=== PATIENT | male | born 1985 | race Asian ===

== ENCOUNTER → 2024-03-13 | Outpatient (CLI) | payer BC ==
[2024-03-13 14:04] LABS: CLARITY URINE CLEAR (CLEAR); COLOR URINE YELLOW (YELLOW); GLUCOSE URINE NEGATIVE (NEGATIVE); PROTEIN URINE NEGATIVE (NEGATIVE); SPECIFIC GRAVITY URINE 1.023 (1.005-1.030)
[2024-03-13 14:05] LABS: KETONES URINE NEGATIVE (NEGATIVE); LEUKOCYTE ESTERASE URINE NEGATIVE (NEGATIVE); NITRITE URINE NEGATIVE (NEGATIVE); OCCULT BLOOD URINE NEGATIVE (NEGATIVE); UROBILINOGEN URINE 0.2 E.U./dL (0.2-1.0)
[2024-03-13 14:22] LABS: ALANINE AMINOTRANSFERASE 56 IU/L (10-49); ALBUMIN 4.5 g/dL (3.2-4.8); ASPARTATE AMINOTRANSFERASE 37 IU/L (<34); BILIRUBIN TOTAL 1.8 mg/dL (0.1-1.0); CALCIUM 9.1 mg/dL (8.7-10.4); CARBON DIOXIDE 28 mEq/L (21-32); CHLORIDE 106 mEq/L (98-107); CHOLESTEROL 237 mg/dL (<200); GLUCOSE 86 mg/dL (70-105); HDL CHOLESTEROL 36 mg/dL (>55); LDL CHOLESTEROL 184 mg/dL (5-100); POTASSIUM 3.9 mEq/L (3.5-5.1); PROTEIN TOTAL 7.4 g/dL (6.0-8.3); SODIUM 141 mEq/L (136-145); T4 FREE 1.36 ng/dL (0.89-1.76); THYROID STIMULATING HORMONE 1.41 uIU/mL (0.55-4.78); TRIGLYCERIDE 172 mg/dL (0-150); UREA NITROGEN BLOOD 8 mg/dL (9-23)
[2024-03-16 09:07] LABS: PROSTATE SPECIFIC AG TOTAL 0.9 ng/mL (0.0-4.0)
[2024-03-16 13:06] LABS: VITAMIN D 25-OH 14.7 ng/mL (30.0-100.0)
[2024-03-17 04:12] LABS: CARCINOEMBRYONIC AG - SEND OUT 3.4 ng/mL (0.0-4.7)
== END | disposition home or self-care (01) ==
LOC: US 13:17
PROVIDERS: ATTEND Internal Medicine Endocrinology, Diabetes & Metabolism
DX: Z13.9 Encounter for screening, unspecified (principal); N20.0 Calculus of kidney; K80.20 Calculus of gallbladder without cholecystitis without obstruction; K76.0 Fatty (change of) liver, not elsewhere classified; E78.00 Pure hypercholesterolemia, unspecified; R73.9 Hyperglycemia, unspecified; K52.9 Noninfective gastroenteritis and colitis, unspecified
CPT/HCPCS: 36415; 76700; 80053; 80061; 81003; 82306; 82378; 82941; 83036; 84153; 84439; 84443; 86301

== ENCOUNTER → 2024-05-01 | Outpatient (CLI) | payer BC ==
[2024-05-02 16:32] LABS: ALANINE AMINOTRANSFERASE 59 IU/L (10-49); ALBUMIN 4.5 g/dL (3.2-4.8); ASPARTATE AMINOTRANSFERASE 32 IU/L (<34); BILIRUBIN DIRECT 0.2 mg/dL (<=3.0); BILIRUBIN TOTAL 0.8 mg/dL (0.1-1.0); GAMMA GLUTAMYL TRANSPEPTIDASE 35 IU/L (<73)
[2024-05-02 16:33] LABS: PROTEIN TOTAL 7.1 g/dL (6.0-8.3)
[2024-05-02 16:35] LABS: HEPATITIS B SURFACE AB 125.5 mIU/mL (<10)
[2024-05-05 08:11] LABS: HBSAG SCREEN Negative (Negative); HEPATITIS A ANTIBODY TOTAL Positive (Negative); HEPATITIS C AB Non Reactive (Non Reactive)
== END | disposition home or self-care (01) ==
LOC: LAB 16:36
PROVIDERS: ATTEND Internal Medicine Gastroenterology
DX: K80.00 Calculus of gallbladder with acute cholecystitis without obstruction (principal); R10.84 Generalized abdominal pain; R94.5 Abnormal results of liver function studies
CPT/HCPCS: 87338

== ENCOUNTER → 2024-11-04 | Outpatient (CLI) | payer BC ==
[2024-11-04 11:26] LABS: BASOPHILS % 0.4 % (0.0-2.0); EOSINOPHILS % 0.3 % (0.0-5.0); HEMATOCRIT. 45.5 % (42.0-52.0); HEMOGLOBIN. 15.3 g/dL (14.0-18.0); LYMPHOCYTES % 42.3 % (20.0-50.0); MEAN CORPUSCULAR HEMOGLOBIN 30.7 pg (28.0-32.0); MEAN CORPUSCULAR HGB CONC 33.6 g/dL (31.0-37.0); MEAN CORPUSCULAR VOLUME 91.3 fL (80.0-94.0); MEAN PLATELET VOLUME 7.5 fl (7.4-10.4); MONOCYTES % 4.9 % (2.0-8.0); NEUTROPHILS % 52.1 % (40.0-76.0); PLATELET 298 x1000/uL (130-400); RED BLOOD CELL COUNT 4.98 mill/uL (4.7-6.1); RED CELL DISTRIBUTION WIDTH 13.3 % (11.6-14.6); WHITE BLOOD COUNT 7.8 x1000/uL (4.5-11.0)
[2024-11-04 11:58] LABS: CARBON DIOXIDE 29 mEq/L (21-32); CHLORIDE 105 mEq/L (98-107); POTASSIUM 4.1 mEq/L (3.5-5.1); SODIUM 139 mEq/L (136-145)
[2024-11-04 11:59] LABS: CALCIUM 9.7 mg/dL (8.7-10.4)
[2024-11-04 12:04] LABS: GLUCOSE 92 mg/dL (70-105); TRIGLYCERIDE 196 mg/dL (0-150); UREA NITROGEN BLOOD 11 mg/dL (9-23)
[2024-11-04 12:05] LABS: LDL CHOLESTEROL 135 mg/dL (5-100)
[2024-11-04 12:06] LABS: ALANINE AMINOTRANSFERASE 35 IU/L (10-49); ALBUMIN 4.6 g/dL (3.2-4.8); ASPARTATE AMINOTRANSFERASE 23 IU/L (<34); BILIRUBIN TOTAL 1.4 mg/dL (0.1-1.0); CHOLESTEROL 218 mg/dL (<200); HDL CHOLESTEROL 38 mg/dL (>55); PROTEIN TOTAL 7.8 g/dL (6.0-8.3); T4 FREE 1.56 ng/dL (0.89-1.76)
[2024-11-04 12:07] LABS: THYROID STIMULATING HORMONE 1.45 uIU/mL (0.55-4.78)
== END | disposition home or self-care (01) ==
LOC: LAB 10:49
PROVIDERS: ATTEND Specialist
DX: R07.89 Other chest pain (principal)
CPT/HCPCS: 36415; 80053; 80061; 83036; 83735; 84439; 84443; 84481; 85025

== ENCOUNTER → 2024-11-06 | Outpatient (CLI) | payer BC | END | disposition home or self-care (01) | LOC: CARD 07:03 | PROVIDERS: ATTEND Specialist | DX: R07.9 Chest pain, unspecified (principal) | CPT/HCPCS: 93306 ==

== ENCOUNTER → 2024-12-04 | Outpatient (CLI) | payer BC ==
[~2024-12-04] VITALS: Ht 170.2 cm; Wt 73.9 kg
[~2024-12-04] MED LIST: IOHEXOL-350 100 ML BOTTLE ONE
[2024-12-04] MEDS: NITROGLYCERIN SPRAY/4.9GM CAN TL NR (10:45)
== END | disposition home or self-care (01) ==
LOC: CT 10:03
PROVIDERS: ATTEND Specialist
DX: R07.9 Chest pain, unspecified (principal)
CPT/HCPCS: 75571; Q9967

== ENCOUNTER → 2024-12-11 | Outpatient (CLI) | payer BC ==
[2024-12-11 17:18] LABS: ALANINE AMINOTRANSFERASE 27 IU/L (10-49); ALBUMIN 4.2 g/dL (3.2-4.8); ASPARTATE AMINOTRANSFERASE 21 IU/L (<34); BILIRUBIN DIRECT 0.2 mg/dL (<=3.0); BILIRUBIN TOTAL 1.1 mg/dL (0.1-1.0); PROTEIN TOTAL 6.8 g/dL (6.0-8.3)
[2024-12-11 17:19] LABS: FOLIC ACID (FOLATE) SERUM 18.62 ng/mL (>5.38); VITAMIN B12 SERUM 533 pg/mL (211-911)
== END | disposition home or self-care (01) ==
LOC: LAB 15:37
PROVIDERS: ATTEND Internal Medicine Endocrinology, Diabetes & Metabolism
DX: E78.5 Hyperlipidemia, unspecified (principal); E55.9 Vitamin D deficiency, unspecified; R94.5 Abnormal results of liver function studies
CPT/HCPCS: 36415; 80076; 82306; 82607; 82746; 83695; 83921; 85651; 86038; 86430

== ENCOUNTER → 2025-03-17 | Outpatient (CLI) | payer BC ==
[2025-03-17 16:50] LABS: BASOPHILS % 0.2 % (0.0-2.0); EOSINOPHILS % 0.4 % (0.0-5.0); LYMPHOCYTES % 46.8 % (20.0-50.0); MEAN CORPUSCULAR HEMOGLOBIN 29.3 pg (28.0-32.0); MEAN CORPUSCULAR HGB CONC 32.6 g/dL (31.0-37.0); MEAN CORPUSCULAR VOLUME 89.8 fL (80.0-94.0); MEAN PLATELET VOLUME 8.2 fl (7.4-10.4); MONOCYTES % 5.9 % (2.0-8.0); NEUTROPHILS % 46.7 % (40.0-76.0); PLATELET 245 x1000/uL (130-400); RED BLOOD CELL COUNT 5.12 mill/uL (4.7-6.1); RED CELL DISTRIBUTION WIDTH 14.1 % (11.6-14.6); WHITE BLOOD COUNT 7.7 x1000/uL (4.5-11.0)
[2025-03-17 17:00] LABS: CHLORIDE 103 mEq/L (98-107); POTASSIUM 3.7 mEq/L (3.5-5.1); SODIUM 140 mEq/L (136-145)
[2025-03-17 17:01] LABS: CALCIUM 10.1 mg/dL (8.7-10.4); CARBON DIOXIDE 30 mEq/L (21-32)
[2025-03-17 17:06] LABS: GLUCOSE 94 mg/dL (70-105)
[2025-03-17 17:07] LABS: LDL CHOLESTEROL 148 mg/dL (5-100); TRIGLYCERIDE 161 mg/dL (0-150); UREA NITROGEN BLOOD 12 mg/dL (9-23)
[2025-03-17 17:08] LABS: ALANINE AMINOTRANSFERASE 36 IU/L (10-49); ALBUMIN 4.5 g/dL (3.2-4.8); ASPARTATE AMINOTRANSFERASE 27 IU/L (<34); CHOLESTEROL 219 mg/dL (<200); HDL CHOLESTEROL 46 mg/dL (>55)
[2025-03-17 17:09] LABS: PROTEIN TOTAL 7.7 g/dL (6.0-8.3)
[2025-03-17 17:13] LABS: T4 FREE 1.42 ng/dL (0.89-1.76)
[2025-03-17 17:14] LABS: THYROID STIMULATING HORMONE 1.18 uIU/mL (0.55-4.78)
[2025-03-19 08:08] LABS: PROSTATE SPECIFIC AG TOTAL 1.1 ng/mL (0.0-4.0); VITAMIN D 25-OH 54.4 ng/mL (30.0-100.0)
== END | disposition home or self-care (01) ==
LOC: LAB 16:13
PROVIDERS: ATTEND Internal Medicine Endocrinology, Diabetes & Metabolism
DX: E55.9 Vitamin D deficiency, unspecified (principal); R73.9 Hyperglycemia, unspecified; E78.00 Pure hypercholesterolemia, unspecified; N20.0 Calculus of kidney
CPT/HCPCS: 36415; 80053; 80061; 82306; 83036; 84153; 84439; 84443; 84550; 85025

== ENCOUNTER → 2025-06-22 | Outpatient (CLI) | payer BC ==
[2025-06-22 11:00] LABS: BASOPHILS % 0.5 % (0.0-2.0); EOSINOPHILS % 0.3 % (0.0-5.0); HEMATOCRIT. 42.7 % (42.0-52.0); HEMOGLOBIN. 14.4 g/dL (14.0-18.0); LYMPHOCYTES % 47.0 % (20.0-50.0); MEAN PLATELET VOLUME 7.9 fl (7.4-10.4); MONOCYTES % 5.9 % (2.0-8.0); NEUTROPHILS % 46.3 % (40.0-76.0); PLATELET 259 x1000/uL (130-400); RED BLOOD CELL COUNT 4.71 mill/uL (4.7-6.1); RED CELL DISTRIBUTION WIDTH 13.6 % (11.6-14.6)
[2025-06-22 11:11] LABS: ASPARTATE AMINOTRANSFERASE 24 IU/L (<34)
[2025-06-22 11:12] LABS: CREATININE 1.0 mg/dL (0.6-1.3)
[2025-06-22 11:13] LABS: TRIGLYCERIDE 90 mg/dL (0-150); UREA NITROGEN BLOOD 11 mg/dL (9-23)
[2025-06-22 11:14] LABS: LDL CHOLESTEROL 88 mg/dL (5-100)
[2025-06-22 11:15] LABS: BILIRUBIN TOTAL 2.9 mg/dL (0.1-1.0); PROTEIN TOTAL 6.9 g/dL (6.0-8.3)
== END | disposition home or self-care (01) ==
LOC: LAB 10:27
PROVIDERS: ATTEND Internal Medicine Endocrinology, Diabetes & Metabolism
DX: E78.5 Hyperlipidemia, unspecified (principal); E55.9 Vitamin D deficiency, unspecified
CPT/HCPCS: 36415; 80053; 80061; 82306; 85025

== ENCOUNTER → 2025-09-24 | Outpatient (CLI) | payer BC ==
[2025-09-24 11:34] LABS: BASOPHILS % 0.3 % (0.0-2.0); EOSINOPHILS % 0.4 % (0.0-5.0); HEMATOCRIT. 45.2 % (42.0-52.0); HEMOGLOBIN. 15.0 g/dL (14.0-18.0); LYMPHOCYTES % 44.6 % (20.0-50.0); MEAN PLATELET VOLUME 8.1 fl (7.4-10.4); MONOCYTES % 6.4 % (2.0-8.0); NEUTROPHILS % 48.3 % (40.0-76.0); PLATELET 260 x1000/uL (130-400); RED BLOOD CELL COUNT 5.04 mill/uL (4.7-6.1); RED CELL DISTRIBUTION WIDTH 13.5 % (11.6-14.6)
[2025-09-24 11:38] LABS: CLARITY URINE CLEAR (CLEAR); COLOR URINE YELLOW (YELLOW); GLUCOSE URINE NEGATIVE (NEGATIVE); PH URINE 6.0 (4.5-8.0); PROTEIN URINE NEGATIVE (NEGATIVE); SPECIFIC GRAVITY URINE 1.021 (1.005-1.030)
[2025-09-24 11:39] LABS: KETONES URINE 3+ (NEGATIVE); LEUKOCYTE ESTERASE URINE NEGATIVE (NEGATIVE); NITRITE URINE NEGATIVE (NEGATIVE); OCCULT BLOOD URINE NEGATIVE (NEGATIVE); UROBILINOGEN URINE 0.2 E.U./dL (0.2-1.0)
[2025-09-24 12:02] LABS: CREATININE 1.1 mg/dL (0.6-1.3); TRIGLYCERIDE 103 mg/dL (0-150); UREA NITROGEN BLOOD 8 mg/dL (9-23)
[2025-09-24 12:03] LABS: LDL CHOLESTEROL 106 mg/dL (5-100)
[2025-09-24 12:04] LABS: ASPARTATE AMINOTRANSFERASE 26 IU/L (<34); BILIRUBIN TOTAL 2.4 mg/dL (0.1-1.0); PHOSPHORUS 3.7 mg/dL (2.5-4.9)
[2025-09-24 12:05] LABS: PROTEIN TOTAL 7.3 g/dL (6.0-8.3)
[2025-09-24 12:06] LABS: T4 FREE 1.57 ng/dL (0.89-1.76)
[2025-09-24 12:38] LABS: CORTISOL 17.1 ucg/dL
[2025-09-24 13:16] LABS: HEPATITIS C AB NON REACTIVE (Neg) (Negative)
[2025-09-27 17:07] LABS: ACTIN (SMOOTH MUSCLE) ANTIBODY 19 Units (0-19)
[2025-09-28 06:08] LABS: *ANA DIRECT W REFLEX PANEL Negative (Negative); HEPATITIS A ANTIBODY TOTAL Positive (Negative); VITAMIN D 25-OH 53.8 ng/mL (30.0-100.0)
== END | disposition home or self-care (01) ==
LOC: US 10:21
PROVIDERS: ATTEND Internal Medicine Endocrinology, Diabetes & Metabolism
DX: R16.0 Hepatomegaly, not elsewhere classified (principal); R93.2 Abnormal findings on diagnostic imaging of liver and biliary tract; E78.5 Hyperlipidemia, unspecified; E55.9 Vitamin D deficiency, unspecified; R73.9 Hyperglycemia, unspecified; K76.0 Fatty (change of) liver, not elsewhere classified
CPT/HCPCS: 36415; 76700; 80053; 80061; 81003; 82306; 82390; 82525; 82533; 82728; 83036; 83516; 83735; 84100; 84439; 84443; 85025; 86038; 86705; 86706; 86708; 87340